=== PATIENT | male | born 1945 | race Caucasian/White ===

== ENCOUNTER 2019-05-29 08:18 | Day surgery (SDC) | payer OTHER ==
[~2019-05-29] VITALS: Ht 170.2 cm; Wt 99.8 kg
[2019-05-29] MEDS ORDERED: MIDAZOLAM 2 MG/2 ML VIAL ONE ×2 (09:17→09:18)
[2019-05-29] MEDS ORDERED: LIDOCAINE 2% 100 MG/5 ML UJET TP ONE (09:18)
[2019-05-29] MEDS ORDERED: fentaNYL 0.05 MG/ML VIAL ONE (09:18)
[2019-05-29] MEDS ORDERED: MIDAZOLAM 2 MG/2 ML VIAL IVP ONE (09:28)
[2019-05-29] MEDS ORDERED: fentaNYL 0.05 MG/ML VIAL IVP ONE (09:29)
== END 2019-05-29 10:38 | disposition home or self-care (01) ==
LOC: MDS 08:18 → MMU 08:19 → MDS 10:38
PROVIDERS: ATTEND Internal Medicine Gastroenterology
DX: K62.5 Hemorrhage of anus and rectum (principal); K64.4 Residual hemorrhoidal skin tags; K64.8 Other hemorrhoids; K59.00 Constipation, unspecified; I25.10 Atherosclerotic heart disease of native coronary artery without angina pectoris; I13.0 Hypertensive heart and chronic kidney disease with heart failure and stage 1 through stage 4 chronic kidney disease, or unspecified chronic kidney disease; I50.9 Heart failure, unspecified; N18.9 Chronic kidney disease, unspecified; E11.22 Type 2 diabetes mellitus with diabetic chronic kidney disease; M19.90 Unspecified osteoarthritis, unspecified site; Z95.5 Presence of coronary angioplasty implant and graft
CPT/HCPCS: 45378; 88305; J2250; J3010